=== PATIENT | female | born 1965 | race Caucasian/White ===

== ENCOUNTER 2017-04-15 09:44 | Outpatient (CLI) | payer OTHER | END 2017-04-15 16:13 | disposition home or self-care (01) | LOC: RAD 09:44 | DX: M25.372 Other instability, left ankle (principal) ==

== ENCOUNTER → 2017-04-15 | Emergency (ER) | payer OTHER | END | disposition home or self-care (01) | LOC: ER 11:31 | DX: S00.83XA Contusion of other part of head, initial encounter (principal); S90.32XA Contusion of left foot, initial encounter; W18.39XA Other fall on same level, initial encounter; Y93.89 Activity, other specified; Y92.89 Other specified places as the place of occurrence of the external cause; Y99.8 Other external cause status ==